=== PATIENT | female | born 1960 ===

== ENCOUNTER 2022-09-22 21:40 | Outpatient (REF) | payer MEDICARE, BC, SELFPAY ==
--- OUTSIDE RECORDS SUMMARY | 2022-09-22 21:44 | XMS_ITS | CCD ---
Author Name Unknown Address [address] [place] [address] [phone] Organization Unknown Address [address] [place] [address] [phone] Care Team Providers Care Gum Scoring Machine Operator Name Role Phone HOANG SELLERS Attending Physician [phone] ANGEL CHAVEZ Rounding (Secondary) Physician [phone] Vital Signs Unknown or Not Available. Allergies Unknown or Not Available. Procedures Unknown or Not Available. History of Immunizations Unknown or Not Available. Problems Problem Code Start Date Resolved Date Status Fibromyalgia 941348348 10/01/2021 Resolved Hypothyroidism 28897876 10/01/2021 Resolved Insomnia 548179673 10/01/2021 Resolved Constipation 85131247 10/01/2021 Resolved Results Unknown or Not Available. Active Medications Unknown or Not Available. Medications Administered During Visit Unknown or Not Available. Encounters Encounter Diagnosis Diagnosis Code Start Date Slow transit constipation K5901 2021 Social History Smoking Status Code Start Date End Date Never smoker [id number] Patient Decision Aids Unknown or Not Available. Discharge Instructions You were admitted to [facility] on 08/05/2021 09:55 with a principal diagnosis of Slow transit constipation You were discharged from [facility] on 09/03/2021 08:23 Should you have any questions prior to discharge, please contact a member of your healthcare team. If you have left the hospital and have any questions, please contact your primary care physician. Chief Complaint and Reason For Visit Unknown or Not Available. Function Status Unknown or Not Available. Plan of Care Unknown or Not Available. Referral/Transition of Care Unknown or Not Available.
--- OUTSIDE RECORDS SUMMARY | 2022-09-22 21:44 | XMS_ITS | CCD ---
Author Name Unknown Address [address] [place] [address] [id number] Organization Unknown Address [address] [place] [address] [phone] Care Team Providers Care It Disaster Recovery Manager Name Role Phone MARÍA ELENA VAZQUEZ Attending Physician [phone] Vital Signs Unknown or Not Available. Allergies Unknown or Not Available. Procedures Unknown or Not Available. History of Immunizations Unknown or Not Available. Problems Problem Code Start Date Resolved Date Status Fibromyalgia 763212811 10/01/2021 Resolved Hypothyroidism 21653963 10/01/2021 Resolved Insomnia 360888046 10/01/2021 Resolved Constipation 54677172 10/01/2021 Resolved Results KAMRYNDANIELA BRISENOID ANGELICABERKLEYX* - Teri ect Date/Time: 07/05/2021 09:45 Test Name Code Test Result Test Units Test Ref Rang e Tier- 03338-6 EXPOSURE N/A SARS COV2 RNA: 00504-1 NEGATIVE N/A REFERENCE RANGE: NEGAT Active Medications Unknown or Not Available. Medications Administered During Visit Unknown or Not Available. Encounters Encounter Diagnosis Diagnosis Code Start Date Exposure to SARS-CoV-2 [id number] Social History Smoking Status Code Start Date End Date Never smoker [id number] Patient Decision Aids Unknown or Not Available. Discharge Instructions You were admitted to [facility] on 07/05/2021 20:31 with a principal diagnosis of Contact with and (suspected) exposure to COVID-19 You had the following tests done:KAMRYN COVID RHEONIX* You were discharged from [facility] on 07/05/2021 20:31 Should you have any questions prior to [...]
--- OUTSIDE RECORDS SUMMARY | 2022-09-22 21:45 | XMS_ITS | CCD ---
Author Name Unknown Address [address] [place] [address] [phone] Organization Unknown Address [address] [place] [address] [phone] Care Team Providers Care Cuff Matcher Name Role Phone KRISTA RIZZO Attending Physician [phone] KRISTA RIZZO Er Physician 5 [phone] TAMICA Lamas Registered Nurse [phone] Vital Signs Vital Sign Value Unit Date/Time Recent/Initial ? BMI (Body Mass Index) 23.78 kg/m^2 10/01/2021 21: 09 Initial VS Weight Measured 130 lbs 10/01/2021 21:09 Ini tial VS Height 62 in 10/01/2021 21:09 Initial VS BSA (Body Surface Area) 1.61 m^2 10/01/2021 2 1:09 Initial VS BP Systolic 98 mmHg 10/01/2021 21:09 Initial VS BP Diastolic 66 mmHg 10/01/2021 21:09 Initia l VS Respiratory Rate 16 bpm 10/01/2021 21:09 In itial VS Heart Rate 60 bpm 10/01/2021 21:09 Initial VS O2 % BldC Oximetry 95 % 10/01/2021 21:09 Initial VS Body Temperature 36.9 degrees 10/01/2021 21:09 In itial VS Allergies Allergy Code Allergy Type Reaction Status No Known Drug Allergies 0 No known drug allergies Active Procedures Unknown or Not Available. History of Immunizations Unknown or Not Available. Problems Problem Code Start Date Resolved Date Status Fibromyalgia 596001927 10/01/2021 Resolved Hypothyroidism 68203899 10/01/2021 Resolved Insomnia 002719054 10/01/2021 Resolved Constipation 24259317 10/01/2021 Resolved Results Unknown or Not Available. Active Medications Medications Administered During Visit Medication Dose Units Frequency Route Date/Time of Last Dose ER-ONDANSETRON ODT 4 PACK: 4MG 4 MG PRN Q8H PO 10/01/2021 21:53 Encounters Encounter Diagnosis Diagnosis Code Start Date Acute upper respiratory infection, unspecified J 069 10/01/2021 Social History Smoking Status Code Start Date End Date Never smoker [id number] Patient Decision Aids Unknown or Not Available. Discharge Instructions You were admitted to [facility] on 10/01/2021 21:04 with a principal diagnosis of Acute upper respiratory infection, unspecified You were discharged from [facility] on 10/01/2021 22:24 Should you have any questions prior to discharge, please contact a member of your healthcare team. If you have left the hospital and have any questions, please contact your primary care physician. Chief Complaint and Reason For Visit Chief Complaint Date of Onset FEVER POSSIBLY COVID Function Status Unknown or Not Available. Plan of Care Unknown or Not Available. Referral/Transition of Care Unknown or Not Available.
--- OUTSIDE RECORDS SUMMARY | 2022-09-22 21:45 | XMS_ITS | CCD ---
Author Name Unknown Address [address] [place] [address] [phone] Organization Unknown Address [address] [place] [address] [phone] Care Team Providers Care Manufacturing Engineering Technologist Name Role Phone ANGEL CHAVEZ Attending Physician [phone] Vital Signs Unknown or Not Available. Allergies Allergy Code Allergy Type Reaction Status No Known Drug Allergies 0 No known drug allergies Active Procedures Unknown or Not Available. History of Immunizations Unknown or Not Available. Problems Unknown or Not Available. Results IODINE 24HOUR URINE* - [facility] Date/Time: 08/26/2022 09:00 Test Name Code Test Result Test Units Test Ref Rang e Iodine Concentration 39075-5 238 mcg/L Collection Duration 28988-9 24 h Urine Volume 3167-4 1100 mL Iodine, 24 Hr, U 2492-7 262 N/A 75 - 851 Iodine ConcentrationInterpretation 13552-9 See Comments N/A Active Medications Unknown or Not Available. Medications Administered During Visit Unknown or Not Available. 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 Discharge Instructions You were admitted to [facility] on 08/26/2022 09:54 with a principal diagnosis of Other iodine-deficiency related thyroid disorders and allied conditions You had the following tests done:IODINE 24HOUR URINE* You were discharged from [facility] on 08/26/2022 09:54 Should you have any questions prior to [...]
--- OUTSIDE RECORDS SUMMARY | 2022-09-22 21:45 | XMS_ITS | CCD ---
Author Name Unknown Address [address] [place] [address] [phone] Organization Unknown Address [address] [place] [address] [phone] Care Team Providers Care Pick Up Driver Name Role Phone ANGEL CHAVEZ Attending Physician [phone] Vital Signs Unknown or Not Available. Allergies Unknown or Not Available. Procedures Unknown or Not Available. History of Immunizations Unknown or Not Available. Problems Problem Code Start Date Resolved Date Status Fibromyalgia 095014091 10/01/2021 Resolved Hypothyroidism 38695973 10/01/2021 Resolved Insomnia 106544605 10/01/2021 Resolved Constipation 36038187 10/01/2021 Resolved Results FREE THYROXINE (FREE T4)* - Collect Date/Time: 09/04/2021 10:27 Test Name Code Test Result Test Units Test Ref Rang e FREE THYROXINE 3024-7 0.90 ng/dL L=0.76 H=1 .46 TSH THYROID STIMULATING HORM ONE* - Collect Date/Time: 09/04/2021 10:27 Test Name Code Test Result Test Units Test Ref Rang e TSH 3014-8 1.462 uIU/mL L=0.360 H=3.74 0 Active Medications Unknown or Not Available. Medications Administered During Visit Unknown or Not Available. Encounters Encounter Diagnosis Diagnosis Code Start Date Dizziness and giddiness 302939621 09/05/19 Social History Smoking Status Code Start Date End Date Never smoker 256982455 Patient Decision Aids Unknown or Not Available. Discharge Instructions You were admitted to [facility] on 09/04/2021 09:55 with a principal diagnosis of Dizziness and giddiness You had the following tests done:FREE THYROXINE (FREE T4)*TSH THYROID STIMULATING HORMONE* You were discharged from [facility] on 09/04/2021 09:55 Should you have any questions prior to [...]
--- OUTSIDE RECORDS SUMMARY | 2022-09-22 21:45 | XMS_ITS | CCD ---
Author Name Unknown Address [address] [place] [address] [phone] Organization Unknown Address [address] [place] [address] [phone] Care Team Providers Care Human Resource Manager Name Role Phone ANGEL CHAVEZ Attending Physician [phone] Vital Signs Unknown or Not Available. Allergies Allergy Code Allergy Type Reaction Status No Known Drug Allergies 0 No known drug allergies Active Procedures Unknown or Not Available. History of Immunizations Unknown or Not Available. Problems Unknown or Not Available. Results COMPREHENSIVE METABOLIC PANE L (CMP) - Collect Date/Time: 08/11/2022 09:34 Test Name Code Test Result Test Units Test Ref Rang e GLUCOSE 2345-7 110 mg/dL L=70 H=116 BUN 3094-0 16 mg/dL L=6 H=25 CREATININE 2160-0 0.98 mg/dL L=0.51 H=0.95 SODIUM SERUM 2951-2 141 mmol/L L=136 H=145 POTASSIUM SERUM 2823-3 4.3 mmol/L L=3.4 H=5 .2 CHLORIDE SERUM 2075-0 104 mmol/L L=96 H=110 CARBON DIOXIDE (CO2) 2028-9 30 mmol/L L=22 H=34 ANION GAP 96100-7 7.3 mmol/L CALCIUM SERUM 24618-6 9.3 mg/dL L=8.2 H=10. 2 BILIRUBIN TOTAL 1975-2 0.8 mg/dL L=0.0 H=1 .3 ALK. PHOS. 6768-6 70 U/L L=46 H=116 SGOT (AST) 1920-8 20 U/L L=15 H=37 SGPT (ALT) 1742-6 19 U/L L=12 H=78 TOTAL PROTEIN 2885-2 7.1 gm/dL L=6.0 H=8.0 ALBUMIN 1751-7 3.9 gm/dL L=3.4 H=5.0 AGE 62 years eGFR (non-Afr.Amer.) 63785-8 58 mL/min eGFR (Afr-Mongolian) 96797-3 70 mL/min CBC W/ DIFFERENTIAL* - [facility] ct Date/Time: 08/11/2022 09:34 Test Name Code Test Result Test Units Test Ref Rang e WBC 6690-2 4.07 th/cmm L=5.00 H=10.00 NEUT % 60.7 % L=40.0 H=80.0 LYMPH % 26.8 % L=10.0 H=50.0 MONO % 57687-0 8.6 % L=2.0 H=12.0 EOS % 2.7 % L=0.0 H=8.0 BASO % 1.0 % L=0.0 H=3.0 IG % 2514-8 0.2 % L=0.0 H=1.1 NRBC % 69690-0 0.0 % L=0.0 H=0.0 NEUT abs count 751-8 2.5 th/cmm L=1.6 H=8. 4 LYMPH abs count 731-0 1.1 th/cmm L=1.5 H=4 .0 MONO abs count 742-7 0.4 th/cmm L=0.2 H=1. 0 EOS abs count 711-2 0.1 th/cmm L=0.0 H=0.5 BASO abs count 704-7 0.0 th/cmm L=0.0 H=0. 2 IG abs count 35551-6 0.0 th/cmm L=0.0 H=0.1 NRBC abs count 19647-9 0.0 mil/cmm L=0.0 H=0. 0 RBC 789-8 4.53 mil/cmm L=3.90 H=5.40 HEMOGLOBIN 718-7 14.4 gm/dL L=12.0 H=16.0 HEMATOCRIT 4544-3 43 % L=37 H=47 MCV 787-2 95 fL L=82 H=92 MCH 785-6 31.8 pg L=27.0 H=31.0 MCHC 786-4 33.3 % L=32.0 H=36.0 RDW-SD 788-0 41.7 fL L=39.0 H=49.0 PLATELET COUNT 777-3 229 th/cmm L=150 H=45 0 URINALYSIS ROUTINE* - [facility] Date/Time: 08/11/2022 09:34 Test Name Code Test Result Test Units Test Ref Rang e COLLECTION MODE: 81685-3 CLEAN CATCH N/A Color 5778-6 YELLOW N/A yellow Appearance 5767-9 CLEAR N/A clear Glucose urine 66381-1 NEGATIVE N/A negative mg /dl Bilirubin 5770-3 NEGATIVE N/A negative Ketones 2514-8 NEGATIVE N/A negative mg/dl Spec gravity 5811-5 1.015 N/A 1.003 - 1.03 0 pH urine 2756-5 7.0 N/A 5.0 - 7.0 Protein 46867-6 NEGATIVE N/A negative mg/dl Urobilinogen 17624-3 0.2 N/A <or= 1 EU/dl Nitrite 5802-4 NEGATIVE N/A negative Blood 5794-3 TRACE-IN N/A negative Leukocytes 37518-8 TRACE N/A negative MICROSCOPIC* INDICATED N/A WBCs 10407-7 5-10 N/A 0-5 / hpf RBCs 92638-1 0-5 N/A 0-5 / hpf Epith cells 63300-0 5-10 N/A 0-5 / hpf Cell types squam+renal N/A Crystals none N/A none Bacteria minimal N/A none Mucus 8247-9 present N/A none Casts 82439-7 none N/A none /lpf Active Medications Unknown or Not Available. Medications Administered During Visit Unknown or Not Available. Encounters Encounter Diagnosis Diagnosis Code Start Date Dizziness and giddiness R42 08/12/19 23 Social History Smoking Status Code Start Date End Date Never smoker [id number] Patient Decision Aids Unknown or Not Available. Discharge Instructions You were admitted to on 08/11/2022 09:23 with a principal diagnosis of Dizziness and giddiness You had the following tests done:CBC W/ DIFFERENTIAL*COMPREHENSIVE METABOLIC PANEL (CMP)URINALYSIS ROUTINE* You were discharged from on 08/11/2022 09:24 Should you have any questions prior to [...]
--- OUTSIDE RECORDS SUMMARY | 2022-09-22 21:45 | XMS_ITS | CCD ---
Author Name Unknown Address [address] [place] [address] [phone] Organization Unknown Address [address] [place] [address] [phone] Care Team Providers Care Closing Coordinator Name Role Phone MICHELLE BHAT Attending Physician [phone] FREDERICK COTTRELL Er Physician [phone] LUI Conroy Registered Nurse [phone] Vital Signs Vital Sign Value Unit Date/Time Recent/Initial ? BMI (Body Mass Index) 23.17 kg/m^2 08/12/2022 08: 00 Initial VS Weight Measured 135 lbs 08/12/2022 08:00 Ini tial VS Height 64 in 08/12/2022 08:00 Initial VS BSA (Body Surface Area) 1.66 m^2 08/12/2022 0 8:00 Initial VS BP Systolic 115 mmHg 08/12/2022 08:00 Initial VS BP Diastolic 69 mmHg 08/12/2022 08:00 Initia l VS Respiratory Rate 14 bpm 08/12/2022 08:00 In itial VS Heart Rate 65 bpm 08/12/2022 08:00 Initial VS O2 % BldC Oximetry 99 % 08/12/2022 08:00 Initial VS Body Temperature 35.7 degrees 08/12/2022 08:00 In itial VS BP Systolic 110 mmHg 08/12/2022 11:04 Most Re cent VS BP Diastolic 76 mmHg 08/12/2022 11:04 Most R ecent VS Respiratory Rate 18 bpm 08/12/2022 11:[address] Recent VS Heart Rate 63 bpm 08/12/2022 11:04 Most Rec ent VS O2 % BldC Oximetry 99 % 08/12/2022 11:04 Most Recent VS Body Temperature 36.3 degrees 08/12/2022 11:[address] Recent VS Allergies Allergy Code Allergy Type Reaction Status No Known Drug Allergies 0 No known drug allergies Active Procedures Unknown or Not Available. History of Immunizations Unknown or Not Available. Problems Unknown or Not Available. Results COMPREHENSIVE METABOLIC PANE L (CMP) - Collect Date/Time: 08/12/2022 08:55 Test Name Code Test Result Test Units Test Ref Rang e GLUCOSE 2345-7 89 mg/dL L=70 H=116 BUN 3094-0 14 mg/dL L=6 H=25 CREATININE 2160-0 0.90 mg/dL L=0.51 H=0.95 SODIUM SERUM 2951-2 141 mmol/L L=136 H=145 POTASSIUM SERUM 2823-3 3.9 mmol/L L=3.4 H=5 .2 CHLORIDE SERUM 2075-0 106 mmol/L L=96 H=110 CARBON DIOXIDE (CO2) 2028-9 27 mmol/L L=22 H=34 ANION GAP 70889-4 7.6 mmol/L CALCIUM SERUM 78967-5 9.1 mg/dL L=8.2 H=10. 2 BILIRUBIN TOTAL 1975-2 0.7 mg/dL L=0.0 H=1 .3 ALK. PHOS. 6768-6 64 U/L L=46 H=116 SGOT (AST) 1920-8 22 U/L L=15 H=37 SGPT (ALT) 1742-6 17 U/L L=12 H=78 TOTAL PROTEIN 2885-2 7.0 gm/dL L=6.0 H=8.0 ALBUMIN 1751-7 3.7 gm/dL L=3.4 H=5.0 AGE 62 years eGFR (non-Afr.Amer.) 39635-6 64 mL/min eGFR (Afr-Greek) 87564-6 77 mL/min LIPASE* NEW - Collect Date/T edward: 08/12/2022 08:55 Test Name Code Test Result Test Units Test Ref Rang e LIPASE. 36 U/L L=16 H=77 CBC W/ DIFFERENTIAL* - [facility] ct Date/Time: 08/12/2022 08:55 Test Name Code Test Result Test Units Test Ref Rang e WBC 6690-2 4.13 th/cmm L=5.00 H=10.00 NEUT % 49.0 % L=40.0 H=80.0 LYMPH % 35.6 % L=10.0 H=50.0 MONO % 28413-0 11.6 % L=2.0 H=12.0 EOS % 2.9 % L=0.0 H=8.0 BASO % 0.7 % L=0.0 H=3.0 IG % 2514-8 0.2 % L=0.0 H=1.1 NRBC % 63882-2 0.0 % L=0.0 H=0.0 NEUT abs count 751-8 2.0 th/cmm L=1.6 H=8. 4 LYMPH abs count 731-0 1.5 th/cmm L=1.5 H=4 .0 MONO abs count 742-7 0.5 th/cmm L=0.2 H=1. 0 EOS abs count 711-2 0.1 th/cmm L=0.0 H=0.5 BASO abs count 704-7 0.0 th/cmm L=0.0 H=0. 2 IG abs count 41473-5 0.0 th/cmm L=0.0 H=0.1 NRBC abs count 79161-1 0.0 mil/cmm L=0.0 H=0. 0 RBC 789-8 4.16 mil/cmm L=3.90 H=5.40 HEMOGLOBIN 718-7 13.3 gm/dL L=12.0 H=16.0 HEMATOCRIT 4544-3 39 % L=37 H=47 MCV 787-2 93 fL L=82 H=92 MCH 785-6 32.0 pg L=27.0 H=31.0 MCHC 786-4 34.3 % L=32.0 H=36.0 RDW-SD 788-0 40.5 fL L=39.0 H=49.0 PLATELET COUNT 777-3 214 th/cmm L=150 H=45 0 URINALYSIS WITH REFLEX CULT IF POSITIVE* - Collect Date/Time: 08/12/2022 08:31 Test Name Code Test Result Test Units Test Ref Rang e COLLECTION MODE: 41987-1 CLEAN CATCH N/A Color 5778-6 YELLOW N/A yellow Appearance 5767-9 CLEAR N/A clear Glucose urine 21514-1 NEGATIVE N/A negative mg /dl Bilirubin 5770-3 NEGATIVE N/A negative Ketones 2514-8 NEGATIVE N/A negative mg/dl Spec gravity 5811-5 1.015 N/A 1.003 - 1.03 0 pH urine 2756-5 7.0 N/A 5.0 - 7.0 Protein 67575-6 NEGATIVE N/A negative mg/dl Urobilinogen 57817-9 0.2 N/A <or= 1 EU/dl Nitrite. 5802-4 NEGATIVE N/A negative Blood 5794-3 NEGATIVE N/A negative Leukocytes. NEGATIVE N/A negative MICROSCOPIC NOT INDICAT N/A Active Medications Unknown or Not Available. Medications Administered During Visit Medication Dose Units Frequency Route Date/Time of Last Dose ACETAMINOPHEN INJ IVPB: 1000MG/100ML 1000 MG X1 IVPB 08/12/2022 08:5 8 ONDANSETRON INJ SDV: 4MG/2ML 4 MG X1 I ASSOCIATE PROPERTY MANAGER 08/12/2022 08:59 SODIUM CHLORIDE 0.9% 1000ML 1000 ML X1 IV 08/12/2022 08:58 Encounters Encounter Diagnosis Diagnosis Code Start Date Constipation, unspecified K5900 2022 Social History Smoking Status Code Start Date End Date Never smoker [id number] Patient Decision Aids Unknown or Not Available. Discharge Instructions You were admitted to [facility] on 08/12/2022 07:47 with a principal diagnosis of Constipation, unspecified You had the following tests done:CBC W/ DIFFERENTIAL*COMPREHENSIVE METABOLIC PANEL (CMP)LIPASE* NEWURINALYSIS WITH REFLEX CULT IF POSITIVE* You were discharged from [facility] on 08/12/2022 11:06 Should you have any questions prior to discharge, please contact a member of your healthcare team. If you have left the hospital and have any questions, please contact your primary care physician. Chief Complaint and Reason For Visit Chief Complaint Date of Onset POSSIBLE KIDNEY STONES Function Status Unknown or Not Available. Plan of Care Unknown or Not Available. Referral/Transition of Care Unknown or Not Available.
== END 2022-09-22 21:41 | disposition home or self-care (01) ==
LOC: LBN 21:40
PROVIDERS: Visit Provider Naturopath
DX: R35.0 Frequency of micturition (principal); N95.2 Postmenopausal atrophic vaginitis
CPT/HCPCS: 87480; 87510; 87660